=== PATIENT | male | born 1960 | race Caucasian/White ===

== ENCOUNTER 2025-06-30 10:36 | Emergency (ER) | payer BC, SELFPAY ==
[2025-06-30 10:44] VITALS: BP 152/99
--- NOTE | 2025-06-30 11:14 | ED.GENMED ---
History of Present Illness
<Zoraida Orozco MD - Last Filed: 06/30/25 15:02>
General
Chief Complaint: Crisis Evaluation
Source: patient
Exam Limitations: none
Time Seen by Provider: 06/30/25 10:50
Nursing documentation reviewed up to this point in time: agreed with
History of Present Illness
History of Present Illness:
The patient is a 64-year-old man with a past medical history of anxiety and psychosis, who was sent to the emergency department after being evaluated by [facility]. Patient to be evaluated by me for medical consult. Patient denies any
significant pain to me. He denies headache. He denies fever and chills. He reports he has been eating well. He denies nausea and vomiting. Patient does report that he has had a hernia for a long time and it generally causes him mild pain every
day. Currently, the hernia is causing him mild discomfort when he touches the area. He denies any significant discomfort. He reports he has been feeling constipated for about 2 days. He reports he is generally not constipated. He reports that
the hernia generally protrudes outward goes back in. He confirms that it feels soft and as it normally does when he touches it today. Patient denies feeling suicidal and any suicidal plans. He denies being homicidal
Past History
<Zoraida Orozco MD - Last Filed: 06/30/25 15:02>
Past History
ED Past Medical History: Psychiatric (Anxiety, depression, paranoia)
ED Past Surgical History: Other (Hernia )
Social History
Tobacco: Other
Alcohol: Other
Drug: None and Other
Personal: Other
Living: other
Employment: Other
Family History
Family History: Other (no signficant)
Review of Systems
<Zoraida Orozco MD - Last Filed: 06/30/25 15:02>
Review of Systems
Allergies reviewed?: Yes
All Other Systems: ROS reviewed and negative except as documented in HPI and ROS
Constitutional: Reports no symptoms
EENT: Reports no symptoms
Respiratory: Reports no symptoms
Cardiac: Reports no symptoms
ABD/GI: Reports constipated and other (Mild chronic daily pain of right inguinal hernia)
: Reports no symptoms
Musculoskeletal: Reports no symptoms
Skin: Reports no symptoms
Neurological: Reports no symptoms
Endocrine: Reports no symptoms
Hematologic/Lymphatic: Reports no symptoms
Psychiatric: Reports no symptoms
Phy Exam
<Zoraida Orozco MD - Last Filed: 06/30/25 15:02>
Physical Exam
Physical Exam:
Physical Exam
General: no apparent distress, not acutely ill. Comfortable appearing
Neck: supple.
Heart: s1/s2 regular rate and rhythm, no murmur. equal radial pulses.
Lungs: no acute respiratory distress. clear bilaterally
Abdomen: Soft throughout, nondistended, right inguinal hernia is soft and reproducible. Normal bowel sounds.
Neuro: alert and oriented. no focal neurological deficits
Skin: no rash
Psychiatric: well kept. interactive and cooperative. Somewhat of a bizarre affect. At times goes my questions and at times repeats himself over and over. However, is calm
Extremities: no edema. no calf tenderness. negative homans. good distal pulses
Course
<Zoraida Orozco MD - Last Filed: 06/30/25 15:02>
Orders/Labs/Results
Orders:
Orders
06/30/25 12:36
Crisis Consult Urgent
Reason for Consult: depression
06/30/25 12:42
Obstruct Series W/PA Chest [CR Obstruct Series W/pa Chest] Urgent
Comment:
Reason For Exam: constipation
06/30/25 12:58
Complete Blood Count/With Diff Urgent
Comprehensive Metabolic Panel Urgent
TSH Reflex To Free T4 Urgent
Comment: ADD ON
06/30/25 14:19
Bladder Scan- Treatment ONCE
Urinalysis Reflex To Culture Urgent
Date Specimen was Collected: 06/30/25
Time Specimen was Collected: 14:23
06/30/25 14:21
Magnesium Citrate [Citroma] 300 ml PO ONCE ONE
06/30/25 14:48
Add On- LAB Urgent
Tests Added?: TSH Reflex to free T4
06/30/25 15:10
CT Abd/Pel (IV only)-DH only Urgent
Comment:
Reason For Exam: diffuse abd pain, decreased BM's
06/30/25 16:38
Calcium 200mg(Ca. Carb. 500mg) [Tums Chewable Tablet] 400 mg .ROUTE .STK-MED ONE
06/30/25 16:42
Calcium 200mg(Ca. Carb. 500mg) [Tums Chewable Tablet] 400 mg PO NOW STA
Abnormal Lab Results
06/30/25
12:58
WBC 12.5 H 10^3/uL
(4.8-10.8)
Plt Count 410 H 10^3/uL
(130-400)
Abs Immat Gran (auto) 0.1 H 10^3/uL
(0-0.05)
Absolute Neuts (auto) 9.4 H 10^3/uL
(1.4-6.5)
Absolute Monos (auto) 1.2 H 10^3/uL
(0.1-0.6)
Lymphocytes % 13.6 L %
(20.5-51.1)
Monocytes % 9.4 H %
(1.7-9.3)
Carbon Dioxide 31 H mmol/L
(22-30)
06/30/25 12:58
06/30/25 12:58
Vital Signs
Initial and Last Documented VS:
Initial Vital Signs
Temp Pulse Resp BP Pulse Ox
99.3 F 86 15 152/99 99
06/30/25 10:44 06/30/25 10:44 06/30/25 10:44 06/30/25 10:44 06/30/25 10:44
Last Documented Vital Signs
Temp Pulse Resp BP Pulse Ox
99.3 F 86 18 144/97 97
06/30/25 10:44 06/30/25 16:44 06/30/25 16:44 06/30/25 16:44 06/30/25 16:44
<Srinivas Santos MD - Last Filed: 06/30/25 19:12>
Orders/Labs/Results
Orders:
Orders
06/30/25 12:36
Crisis Consult Urgent
Reason for Consult: depression
06/30/25 12:42
Obstruct Series W/PA Chest [CR Obstruct Series W/pa Chest] Urgent
Comment:
Reason For Exam: constipation
06/30/25 12:58
Complete Blood Count/With Diff Urgent
Comprehensive Metabolic Panel Urgent
TSH Reflex To Free T4 Urgent
Comment: ADD ON
06/30/25 14:19
Bladder Scan- Treatment ONCE
Urinalysis Reflex To Culture Urgent
Date Specimen was Collected: 06/30/25
Time Specimen was Collected: 14:23
06/30/25 14:21
Magnesium Citrate [Citroma] 300 ml PO ONCE ONE
06/30/25 14:48
Add On- LAB Urgent
Tests Added?: TSH Reflex to free T4
06/30/25 15:10
CT Abd/Pel (IV only)-DH only Urgent
Comment:
Reason For Exam: diffuse abd pain, decreased BM's
06/30/25 16:38
Calcium 200mg(Ca. Carb. 500mg) [Tums Chewable Tablet] 400 mg .ROUTE .STK-MED ONE
06/30/25 16:42
Calcium 200mg(Ca. Carb. 500mg) [Tums Chewable Tablet] 400 mg PO NOW STA
Abnormal Lab Results
06/30/25
12:58
WBC 12.5 H 10^3/uL
(4.8-10.8)
Plt Count 410 H 10^3/uL
(130-400)
Abs Immat Gran (auto) 0.1 H 10^3/uL
(0-0.05)
Absolute Neuts (auto) 9.4 H 10^3/uL
(1.4-6.5)
Absolute Monos (auto) 1.2 H 10^3/uL
(0.1-0.6)
Lymphocytes % 13.6 L %
(20.5-51.1)
Monocytes % 9.4 H %
(1.7-9.3)
Carbon Dioxide 31 H mmol/L
(22-30)
06/30/25 12:58
06/30/25 12:58
Vital Signs
Initial and Last Documented VS:
Initial Vital Signs
Temp Pulse Resp BP Pulse Ox
99.3 F 86 15 152/99 99
06/30/25 10:44 06/30/25 10:44 06/30/25 10:44 06/30/25 10:44 06/30/25 10:44
Last Documented Vital Signs
Temp Pulse Resp BP Pulse Ox
99.3 F 86 18 144/97 97
06/30/25 10:44 06/30/25 16:44 06/30/25 16:44 06/30/25 16:44 06/30/25 16:44
<Zoraida Orozco MD - Last Filed: 06/30/25 15:02>
MDM/Problems Addressed
Differential Diagnosis Includes:
Chronic reproducible hernia, incarcerated hernia, partial bowel obstruction
MDM/Problems Addressed:
Patient complains of chronic hernia pain and acute constipation
Chronic conditions affecting care: Previous abdomnial surgery
Acute Exacerbation and/or Progression of Chronic Illness:
Patient could be at acute risk of bowel obstruction given his history of previous abdominal surgery
Acute Exacerbation and/or Progression of Chronic Illness: Previous abdomnial surgery
<Zoraida Orozco MD - Last Filed: 06/30/25 15:02>
*Radiology
Radiology exam reviewed: preliminary read by ED provider (Large amount of stool in colon) and radiology read reviewed
*Pulse Oximetry
SaO2: 99
Oxygen Mode of Delivery: Room air
Patient hypoxic: no (99% on room air)
*EKG
Interpreted by ED Provider?: NA
*Digital Content Coordinator Interpretation
Rate: Digital Content Coordinator- N/A
*Critical Care Note
Total Time (30-74mins, 75-104mins- exclusive of procedures): Not Applicable
Data Reviewed
Review of Other/Old Records Reveals: Radiology Studies (Ultrasound reviewed by me from 2017 which shows no sign of gallbladder disease)
Source: patient
<Zoraida Orozco MD - Last Filed: 06/30/25 15:02>
Update Note
Update Note:
Patient's x-ray shows a large amount of stool in colon without any signs of obstruction. His hernia is reducible and soft. His abdomen is still nondistended and completely soft. Therefore, I do not feel there is an acute surgical issue. Patient
will be offered mag citrate. Additionally, patient should be encouraged to use 1 capful of MiraLAX daily until he is able to pass a soft large bowel movement.
Dr. Guerrero has evaluated the patient and will discuss possible inpatient psychiatric management with the patient, however given the patient is not feeling suicidal or expressing suicidal thoughts, he can voluntarily go home if he wishes
Patient is reporting that he is having difficulty passing urine. This may be due to a large prostate and or his constipation. I have ordered a bladder scan and we are awaiting his urinalysis. There is no sign of sepsis or hemodynamic instability
Additionally, patient's lungs are clear and he denies coughing. Therefore, there is no sign of clinical bronchitis or pneumonia
<Srinivas Santos MD - Last Filed: 06/30/25 19:12>
Update Note
Update Note:
Patient's x-ray shows a large amount of stool in colon without any signs of obstruction. His hernia is reducible and soft. His abdomen is still nondistended and completely soft. Therefore, I do not feel there is an acute surgical issue. Patient
will be offered mag citrate. Additionally, patient should be encouraged to use 1 capful of MiraLAX daily until he is able to pass a soft large bowel movement.
Dr. Guerrero has evaluated the patient and will discuss possible inpatient psychiatric management with the patient, however given the patient is not feeling suicidal or expressing suicidal thoughts, he can voluntarily go home if he wishes
Patient is reporting that he is having difficulty passing urine. This may be due to a large prostate and or his constipation. I have ordered a bladder scan and we are awaiting his urinalysis. There is no sign of sepsis or hemodynamic instability
Additionally, patient's lungs are clear and he denies coughing. Therefore, there is no sign of clinical bronchitis or pneumonia
1900... Rectal exam with a fecal impaction. Carefully loosened up the best I could. He was uncomfortable with this however. Will give an enema discharged to follow-up.
ED Attending Note
<Zoraida Orozco MD - Last Filed: 06/30/25 15:02>
-
Portions of this chart may have been created with voice recognition software.� Occasional wrong word or��sound alike� substitutions may have occurred due to the inherent limitations of voice recognition software.
Discharge Plan
Departure
Patient Disposition: Home (Routine Discharge)
Date of Disposition: 06/30/25
Time of Disposition: 14:27
Patient with high blood pressure during this ER visit?: Yes
Condition: Good
Covid-19: Not Applicable
Discharge Problem:
Constipation, Reducible right inguinal hernia
Instructions: Groin hernias, Constipation in adults - ED discharge instructions, BLOOD PRESSURE
Prescriptions:
No Action
No Current Medications
0
Referrals:
NONE,* [Family Provider, Internal Medicine]
Activity Restrictions/Additional Instructions:
Use the magnesium citrate today for constipation. If you are still unable to pass stool by tomorrow morning, please use 1 capful of MiraLAX (sold [id number]) once a day until you are able to pass a large bowel movement. Do not take any
laxatives, such as MiraLAX, if you develop diarrhea
Please follow-up with your primary care doctor within 1 week. Please return with any fever, chills, nausea or vomiting.
Please return if your hernia becomes hard or more painful.
Also followup per crisis.
Interventions
Interventions:
*Risk Screen - Suicide Last Done: 06/30/25 10:48
*General Assessment Last Done: 06/30/25 10:48
*Neglect/Abuse Screening Last Done: 06/30/25 10:48
*ED- Fall Risk Assessment Last Done: 06/30/25 10:48
*ED COVID-19 Vaccine History Last Done: 06/30/25 10:48
ED-Psychological Assessment Last Done: 06/30/25 14:36
Discharge Date and Time
Print Language: BRAZILIAN
[2025-06-30 13:06] LABS: Hematocrit 42.6 % (39.0-52.0); Hemoglobin 14.8 g/dL (13.0-18.0); Mean Corp Hgb Conc. 34.7 g/dL (33.0-37.0); Mean Corpuscular Volume 87.7 fL (80.0-94.0); Nucleated Red Blood Cells % 0 % (-); Platelet Count 410 10^3/uL (130-400); Red Cell Dist. Width 12.3 % (11.5-14.5)
[2025-06-30 13:22] LABS: ALT (SGPT) 18 U/L (0-50); AST (SGOT) 24 U/L (17-59); Albumin 4.2 g/dl (3.5-5.0); Alkaline Phosphatase 61 U/L (38-126); Blood Urea Nitrogen 14 mg/dl (9-20); Calcium 9.6 mg/dl (8.4-10.2); Carbon Dioxide 31 mmol/L (22-30); Chloride 99 mmol/L (98-107); Glucose 94 mg/dl (70-99); Potassium 4.5 mmol/L (3.5-5.1); Sodium 135 mmol/L (135-145); Total Protein 7.6 g/dl (6.3-8.2); eGFR > 60.00
[2025-06-30] MEDS: CITROMA 300 ML PO (14:29)
--- NOTE | 2025-06-30 14:35 | CON.MD ---
Consultation - Medical
-
patient seen chart reviewed. spoke with forestry conservation worker and dr turner. this consult is being done on june 30 2025. the patient is a 64 year old man who was referred by mobile crisis. he says he told his gf that he was 'depressed' and needed to be
in hospital. he said he told her that bc he wanted to get himself to an ER for medical evaluation as he is convinced there is something very wrong with him. three weeks ago her reports waking up and feeling terrible. he is very non specific as to
what his medical complaints are other than to say repeatedly that he can't urinate defecate or eat. he says he has been unable to go to work in that time. he has no energy. he cannot even bring himself to get in his car and drive. he does have hx
of depression in the past and apparently was hospitalized about seven or eight years ago for depression and what sounds like a paranoid psychosis. he has not been taking psych meds nor has he had any psych rx in recent years. he has lost an
unspecified amount of weight. again he is convinced that he is seriously ill and not at all mentally ill at this time. he has no thought of harming self. he denies hallucinations or ideas of reference
past psych hx see above patient was actually seen in er for the episode of paranoia several years ago.
medical hx patient denies any hx of chronic medical problems. he denies htn hld bp is high 152/99 temp 99.3 chem screen negative cbc w sl inc wbc 12+ left shift ua pending if he can urinate (bladder scan only 270 cc urine) flat plate shows
some constipation (mag citrate given)
fh depression
substance abuse denied
social hx . he does have a gf. has kids. 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
mse alert ox3 cooperative ...nl speech... thought process perseverative on the theme of illness mood is anxious affect c/w mood no si no hi likely above average intelligence insight/ judgment ? it is unclear if patient's fears re his health
represent a delusion or preoccupation that will be reinforced by medical investigation
dx r.o medical illness r.o psychosis
plan continue w current workup. i have presented to patient that if we find no medical reasons for his sx that he could be hosp [facility]. he is not really interested in this. he asked if i could transfer him to
another er. i replied that this is something that does not necessarily make sense but i could not stop him from doing this himself if this is what he feels he needs. he is not at this point commitable under section 302 of the mental health
procedures act as he is not presenting a danger to himself or others.
[2025-06-30] MEDS: TUMS CHEWABLE TABLET 400 MG PO (16:42)
[2025-06-30 16:44] VITALS: BP 144/97
[2025-06-30 19:53] VITALS: BP 140/88
== END 2025-06-30 20:09 | disposition home or self-care (01) ==
LOC: EMR 10:36
PROVIDERS: EMERGENCY PHYSICIAN Emergency Medicine; OTHER PHYSICIAN Psychiatry & Neurology Psychiatry
DX: K59.09 Other constipation (principal); K40.90 Unilateral inguinal hernia, without obstruction or gangrene, not specified as recurrent; F32.A Depression, unspecified; F41.9 Anxiety disorder, unspecified
CPT/HCPCS: 99284; 74022; 74177; 80053; 84443; 85025; Q9967

== ENCOUNTER 2025-07-24 14:50 | Emergency (ER) | payer BC, SELFPAY ==
[2025-07-24 14:51] VITALS: BP 138/95
--- NOTE | 2025-07-24 19:01 | ED.GENMED ---
History of Present Illness
General
Chief Complaint: Crisis Evaluation
Source: patient
Time Seen by Provider: 07/24/25 18:49
History of Present Illness
History of Present Illness:
64-year-old male with past medical history of anxiety and depression presenting to the emergency department for evaluation of increasing depression over the last 1 to 2 weeks stating he feels somewhat hopeless, sits on the couch all day and states
has no urge to do anything other than sit on the couch. He notes that he has not been eating or drinking very much during this time and notes there was a period of about 1 week where he became acutely paranoid noting he felt as if he were going to
lose his job, the government was going to come after him and that he would be sent away. Patient states that he no longer feels this paranoia. He has no physical complaints at this time. He denies any fevers or infectious symptoms. Patient
states that he ultimately would like to go to either [facility] or [facility] as he had been there many years ago and states this seem to have helped him.
Past History
Past History
ED Past Medical History: Psychiatric (Anxiety, depression, paranoia)
ED Past Surgical History: Other (Hernia )
Social History
Tobacco: Non-smoker
Alcohol: None
Drug: None
Personal:
Living: alone
Employment: Employed
Family History
Family History: Other (no signficant)
Review of Systems
Review of Systems
All Other Systems: ROS reviewed and negative except as documented in HPI and ROS
Phy Exam
Physical Exam
Physical Exam:
GENERAL: Alert , in no apparent distress
EYE: conjunctiva clear
Head: Normocephalic atraumatic
NECK: Supple,
ENT: mmm.
LUNGS: no acute respiratory distress
NEUROLOGICAL: Alert and oriented
SKIN: Warm and dry, skin intact.
MUSCULOSKELETAL: well perfused.
PSYCH: Normal and appropriate interaction.
Scores
Heart Failure Risk
Heart Failure Risk Score: Not Applicable
Heart Score for Chest Pain Patients
STEMI patient?: Not applicable
Withdrawal Assessment of Alcohol
Withdrawal Assessment Completed?: Not applicable
Course
Orders/Labs/Results
Orders:
Orders
07/24/25 15:01
Crisis Consult Urgent
Reason for Consult: refer to ER note.
07/24/25 18:58
observation [ED Special Safety Observation] ONCE
Observation level: One to Two
07/24/25 21:47
Complete Blood Count/With Diff Urgent
Comprehensive Metabolic Panel Urgent
07/24/25 22:45
Urine Drug Abuse Screen Urgent
Date Specimen was Collected: 07/24/25
Time Specimen was Collected: 22:37
Abnormal Lab Results
07/24/25
21:47
WBC 12.0 H 10^3/uL
(4.8-10.8)
RBC 4.54 L 10^6/uL
(4.70-6.10)
Abs Immat Gran (auto) 0.1 H 10^3/uL
(0-0.05)
Absolute Neuts (auto) 8.1 H 10^3/uL
(1.4-6.5)
Absolute Monos (auto) 1.2 H 10^3/uL
(0.1-0.6)
Monocytes % 9.6 H %
(1.7-9.3)
Carbon Dioxide 31 H mmol/L
(22-30)
Glucose 108 H mg/dl
(70-99)
07/24/25 21:47
07/24/25 21:47
Vital Signs
Initial and Last Documented VS:
Initial Vital Signs
Temp Pulse Resp BP Pulse Ox
98.7 F 90 18 138/95 97
07/24/25 14:51 07/24/25 14:51 07/24/25 14:51 07/24/25 14:51 07/24/25 14:51
Last Documented Vital Signs
Temp Pulse Resp BP Pulse Ox
98.7 F 70 18 132/85 99
07/24/25 14:51 07/24/25 21:55 07/24/25 21:55 07/24/25 21:55 07/24/25 21:55
MDM/Problems Addressed
Differential Diagnosis Includes:
Depression
Bipolar disorder
Psychosis/delirium
No symptoms/signs to suggest infectious etiology
MDM/Problems Addressed:
64-year-old male presenting the ER for evaluation of increased depression and paranoia over the last few weeks. Patient ultimately would like to be admitted to an inpatient facility for further care. At this time patient is medically cleared and
in no acute distress. Will place consult for [facility]. Disposition pending.
*Pulse Oximetry
SaO2: 97
Oxygen Mode of Delivery: Room air
Patient hypoxic: no
*Critical Care Note
Total Time (30-74mins, 75-104mins- exclusive of procedures): Not Applicable
Patient Management
Escalation/DeEscalation of care consider admission/obs:
Patient accepted at [facility] for inpatient treatment on a voluntary basis. Transport arranged for patient to be taken from the ER directly to their facility.
ED Attending Note
-
Portions of this chart may have been created with voice recognition software.� Occasional wrong word or��sound alike� substitutions may have occurred due to the inherent limitations of voice recognition software.
Discharge Plan
Departure
Patient Disposition: Psych Facility
Date of Disposition: 07/24/25
Time of Disposition: 22:11
Patient with high blood pressure during this ER visit?: No
Discharge Problem:
Depression
Prescriptions:
No Action
No Current Medications
0
Referrals:
UNKNOWN - PT DOES,NOT KNOW [Family Provider]
Interventions
Interventions:
*Risk Screen - Suicide Last Done: 07/24/25 14:51
*General Assessment Last Done: 07/24/25 19:45
*Neglect/Abuse Screening Last Done: 07/24/25 19:45
*ED- Fall Risk Assessment Last Done: 07/24/25 19:45
*ED COVID-19 Vaccine History Last Done: 07/24/25 19:45
ED-Psychological Assessment Last Done: 07/24/25 19:46
Discharge Date and Time
Print Language: GERMAN
[2025-07-24 19:44] VITALS: BMI 22.1
[2025-07-24 19:54] VITALS: BP 139/90
[2025-07-24 21:55] VITALS: BP 132/85
[2025-07-24 21:57] LABS: Hematocrit 39.9 % (39.0-52.0); Hemoglobin 13.6 g/dL (13.0-18.0); Mean Corp Hgb Conc. 34.1 g/dL (33.0-37.0); Mean Corpuscular Volume 87.9 fL (80.0-94.0); Nucleated Red Blood Cells % 0 % (-); Platelet Count 328 10^3/uL (130-400); Red Cell Dist. Width 13.0 % (11.5-14.5)
[2025-07-24 22:10] LABS: ALT (SGPT) 18 U/L (0-50); AST (SGOT) 18 U/L (17-59); Albumin 4.1 g/dl (3.5-5.0); Alkaline Phosphatase 51 U/L (38-126); Blood Urea Nitrogen 14 mg/dl (9-20); Calcium 9.6 mg/dl (8.4-10.2); Carbon Dioxide 31 mmol/L (22-30); Chloride 101 mmol/L (98-107); Estimated Creatinine Clearance 97 ml/min; Glucose 108 mg/dl (70-99); Potassium 4.3 mmol/L (3.5-5.1); Sodium 137 mmol/L (135-145); Total Protein 7.1 g/dl (6.3-8.2); eGFR > 60.00
[2025-07-24 23:35] VITALS: BP 128/71
[2025-07-25 01:52] VITALS: BP 118/76
== END 2025-07-25 03:47 ==
LOC: EMR 14:50
PROVIDERS: Physician Assistant Medical; EMERGENCY PHYSICIAN Emergency Medicine
DX: F32.A Depression, unspecified (principal); F41.9 Anxiety disorder, unspecified
CPT/HCPCS: 99285; 80053; 80306; 85025